=== PATIENT | male | born 1960 | race Caucasian/White ===

== ENCOUNTER 2018-09-09 19:38 | Inpatient (IN) | payer MEDICAID ==
[~2018-09-09] VITALS: Ht 180.3 cm; Wt 82.5 kg
[2018-09-09 20:13] LABS: BASOPHILS 0.5 % (0-2); HEMATOCRIT 46.6 % (42.0-54.0); HEMOGLOBIN 16.9 g/dL (13.5-17.5); IMMATURE GRANULOCYTES 0.1 % (0-5); LYMPHOCYTES 41.5 % (15-50); MCH 33.7 pg (26.0-34.0); MCHC 36.3 g/dL (31.0-37.0); MEAN PLATELET VOLUME 9.1 fL (7.4-10.4); MONOCYTES 10.9 % (2-11); PLATELET COUNT 197 10x3/uL (130-400); RBC 5.01 10x6/uL (4.20-6.10); RDW 13.5 % (11.5-14.5); WBC 8.6 10x3/uL (4.8-10.8)
[2018-09-09 20:28] LABS: ALBUMIN 3.9 g/dL (3.4-5.0); ALKALINE PHOSPHATASE 67 U/L (46-116); ALT (SGPT) 20 U/L (10-68); BILIRUBIN - TOTAL 0.39 mg/dL (0.2-1.3); CALC OSMOLALITY 270 mosm/kg (275-300); CALCIUM 8.5 mg/dL (8.5-10.1); CARBON DIOXIDE 23.1 mmol/L (21.0-32.0); CHLORIDE - SERUM 100 mmol/L (98-107); GLUCOSE 99 mg/dL (74-106); POTASSIUM - SERUM 4.1 mmol/L (3.5-5.1); PROTEIN - SERUM 7.3 g/dL (6.4-8.2); SODIUM 136 mmol/L (136-145); UREA NITROGEN 9 mg/dL (7-18); eGFR NON AFRICAN AMERICAN 82 mL/min (90-120)
--- NOTE | 2018-09-09 21:25 | NUR ---
WOUND IRRIGATED WITH 1000 ML OF NS IRRIGATION SOLUTION.
--- NOTE | 2018-09-09 21:27 | NUR ---
FINGER WAS DRESSED WITH NS SOAKED GAUZE AND WRAPPED WITH ROLL GAUZE, PT ADA WELL.
[2018-09-09 22:21] VITALS: BP 134/85; BMI 25.3
[2018-09-09] MEDS ORDERED: IBUPROFEN200 MG PO (22:37)
[2018-09-09] MEDS ORDERED: ALEVE220 MG PO (22:38)
--- NOTE | 2018-09-09 23:12 | NUR ---
PT ARRIVED VIA W/C FROM ER AT 2201 HRS. DENIED ANY DISCOMFORT. ADMISSION ASSESSMENT, HISTORY AND HOME MED LIST COMPLETED. ALERT AND ORIENTED TO PERSON, PLACE AND TIME. 4TH DIGIT OF L HAND BANDAGED ANDSTABILIZED WITH METAL IMMOBILIZER. PALPABLE PERIPHERAL PULSES. IV TO RFA WITH NS AT 125CC/HR. INFORMED NPO AFTER MIDNIGHT FOR PROBABLE OTHOPEDIC SURGERY BY DR WARD. PT STATED UNDERSTANDING. BROTHER AT BEDSIDE. SR UP X1, CALL LIGHT WITHIN REACH.
[2018-09-10] VITALS: BP 134/85
--- NOTE | 2018-09-10 00:45 | NUR ---
PT RESTING WITH EYES CLOSED. RESP EVEN AND REGULAR. SRUP X2, CALL LIGHT WITHIN REACH.
--- NOTE | 2018-09-10 02:27 | NUR ---
PT RESTING WITH EYES CLOSED. RESP EVEN AND REGULAR. SR UP X2, CALL LIGHT WITHIN REACH.
[2018-09-10 04:00] VITALS: BP 130/68
--- NOTE | 2018-09-10 04:28 | NUR ---
PT STATED HE ACCIDENTALLY HIT L HAND ON TABLE. REQUESTING PAIN MEDS. INFORMED PT NEXT PAIN MEDS AROUND 0500. PT STATED UNDERSTANDING. SR UP X1, CALL LIGHT WITHIN REACH.
--- NOTE | 2018-09-10 06:43 | NUR ---
VSS. PT STATES MORPHINE HELPED PAIN, NEEDS MET;WILL CONTINUE TO MONITOR.
--- NOTE | 2018-09-10 07:45 | NUR ---
A/A/OX4. REMAINS NPO FOR SURGERY TODAY. BANDAGE TO RIGHT HAND WITH SMALL AMT BLOOD NOTED. NO REQUESTS AT PRESENT TIME. ASSESSMENT COMPLETED AND WILL CONTINUE POC.
[2018-09-10 08:55] VITALS: BP 137/75
[2018-09-10 09:21] VITALS: Ht 180.3 cm; Wt 82.5 kg
[2018-09-10 12:36] VITALS: BP 140/56
--- NOTE | 2018-09-10 14:15 | NUR ---
I have reviewed this patient and I concur with the Shift Assessment completed by the Licensed Practical Nurse today this shift.
--- NOTE | 2018-09-10 14:23 | NUR ---
TO SURGERY VIA BED.
--- NOTE | 2018-09-10 14:33 | NUR ---
I have reviewed this patient and I concur with the Shift Assessment completed by the Licensed Practical Nurse today this shift.
--- NOTE | 2018-09-10 16:45 | NUR ---
RETUNRED TO ROOM VIA BED. A/A/OX4 AND DENIES ANY PAIN AT THIS TIME. DRESSING TO LEFT HAND C/D/I. VS STABLE.
[2018-09-10 20:00] VITALS: BP 130/72
[2018-09-11] VITALS: BP 138/76
--- NOTE | 2018-09-11 02:27 | NUR ---
I have reviewed this patient and I concur with the Shift Assessment completed by the Licensed Practical Nurse today this shift.
--- NOTE | 2018-09-11 03:26 | NUR ---
MORPHINE 4 MG GIVEN IV FOR C/O PAIN TO HAND, RATES PAIN AT AN 8 ON PAIN SCALE.
[2018-09-11 04:20] VITALS: BP 119/75
--- NOTE | 2018-09-11 07:24 | NUR ---
PT BACK TO ROOM, HOOKED HIM BACK TO IV FLUIDS AT 50CC/HR TO RIGHT FOREARM. PT A/OX4, RESP EVEN AND NONLABORED ON RA. LT HAND WITH DRESSING CDI. PT DENIES ANY PAIN AT THIS TIME. INFORMED HIM THAT HE DOES HAVE A GARAGE MECHANIC PUMP TO CONTROL HIS PAIN IF HE STARTS HURING REALLY BAD. PT STATED THAT THE PAIN MEDICATION THAT HE IS GETTING IS WORKING RIGHT NOW. PT DENIES ANY OTHER NEEDS AT THIS TIME. CALL LIGHT IN REACH, NAD NOTED, WILL CONTINUE PLAN OF CARE.
[2018-09-11] MEDS ORDERED: PERCOCET 7.5/321 TAB PO (08:08)
[2018-09-11] MEDS ORDERED: ATARAX 25 MG TA25 MG PO (08:09)
[2018-09-11] MEDS ORDERED: SULFAMETHOXAZOL1 TA3 PO (08:10)
[2018-09-11] MEDS ORDERED: COLACE100 MG PO (08:17)
--- NOTE | 2018-09-11 08:17 | NUR ---
COLACE GIVEN ORDERED, ALSO GAVE 4MG OF MORPHINE FOR PAIN LEVEL OF 5/10. PT DENIES ANY OTHER NEEDS AT THIS TIME. CALL LIGHT IN REACH, NAD NOTED, WILL CONTINUE TO MONITOR.
[2018-09-11 09:16] VITALS: BP 145/80
--- NOTE | 2018-09-11 09:55 | NUR ---
PROVIDED VERBAL AND WRITTEN DISCHARGE TEACHING TO PT, WHO VERBALIZED UNDERSTANDING REGARDING TEACHING. D/C RT FA IV WITH CATHETER TIP INTACT. PT REFUSED WHEELCHAIR, LEFT UNIT VIA AMBULATORY WITH ALL BELONGINGS, ACCOMPANIED BY FAMILY, NAD NOTED.
--- NOTE | 2018-09-11 10:02 | MORECARE ---
CASE MANAGEMENT DISCHARGE SUMMARY PATIENT: GATO LUNA UNIT: [id number] ADM DATE: 09/10/18 AGE: 57 : 62 SEX: M ROOM/BED: D.2113 AUTHOR: FELICIANO GERMAN PHYSICIAN: REFERRING PHYSICIAN: MAT WARD MD DATE OF SERVICE: 09/11/18 Discharge Plan Patient Name: GATO LUNA Facility: [facility]:[place] : 1960 Planned Disposition: Home Anticipated Discharge Date: 09/11/18 Discharge Date: Expected LOS: 1 Initial Reviewer: [email or web address] Initial Review Date: 09/11/2018 Generated: 09/11/18 11:02 am Patient Name: GATO LUNA Page [id number] at 1002 All edits/amendments must be made on the electronic document DICTATION DATE: 09/11/18 1002 LOCKER ATTENDANT: JONES 09/11/18 1002 RPT#: [id number] DC DATE: STATUS: ADM IN [facility] [address] [place] [address] END OF REPORT
--- NOTE | 2018-09-11 10:09 | MORECARE ---
CASE MANAGEMENT DISCHARGE SUMMARY PATIENT: GATO LUNA UNIT: [id number] ADM DATE: 09/10/18 AGE: 57 : 62 SEX: M ROOM/BED: D.2113 AUTHOR: MAXI,DOC PHYSICIAN: REFERRING PHYSICIAN: MAT WARD MD DATE OF SERVICE: 09/11/18 Discharge Plan Patient Name: GATO LUNA Facility: [facility]:[place] : 1960 Planned Disposition: Home Anticipated Discharge Date: 09/11/18 Discharge Date: Expected LOS: 1 Initial Reviewer: [email or web address] Initial Review Date: 09/11/2018 Generated: 09/11/18 11:09 am Comments DCP- Discharge Planning Updated by [email or web address]: Selwyn Herrera on 09/11/18 9:[address] Patient Name: GATO LUNA Admission Status: ER Accout number: [id number] Admission Date: 09-10-2018 : 1960 Admission Diagnosis: Attending: MAT WARD Current LOS: 1 Anticipated DC Date: 09-11-2018 Planned Disposition: Home Primary Insurance: MEDICAID [place] PENDING Discharge Planning Comments: CM MET WITH PT AND BROTHER IN ROOM TO DISCUSS DISCHARGE PLANNING AND NEEDS. GATO LUNA provided verbal consent to discuss current and ongoing needs with/in the presence of: BROTHER TERESITA. PT REPORTS LIVING AT HOME INDEPENDENTLY AND ALONE [facility] PT HAS CANES THAT HE USES ON [employer] WITH NO MEDICAL EQUIPMENT PROVIDER PREFERENCE. PT HAS NO OUTSIDE SERVICES ASSISTING IN THE HOME. CM DISCUSSED AVAILABILITY OF HOME HEALTH, REHAB SERVICES AND MEDICAL EQUIPMENT. PT DENIES DISCHARGE NEEDS, REPORTS HIS BROTHER IS HERE TO PICK HIM UP FOR DISCHARGE HOME. CM PROVIDED [facility] INFORMATION FOR POSSIBLE PRIMARY CARE ARRANGEMENT BY PATIENT AND [employer] DISCOUNT CARD TO POSSIBLY ASSIST WITH PRESCRIPTION PURCHASE JEONG. Tape Maker: Selwyn Herrera DCPIA - Discharge Planning Initial Assessment Updated by [email or web address]: Selwyn Herrera on 09/11/18 10:02 am * Is the patient Alert and Oriented? Yes * How many steps to enter\exit or inside your home? * PCP NONE - REFERRED TO [facility] * Pharmacy [facility] [address] * Preadmission Environment Home Alone * ADLs Independent * Equipment Cane * Other Equipment NO MEDICAL EQUIPMENT PROVIDER PREFERENCE * List name and contact numbers for known caregivers / representatives who currently or will assist patient after discharge: TERESITA LUNA, BROTHER, * Verbal permission to speak to the caregivers and representatives has been obtained from the patient. Yes * Community resources currently utilized None * Please name any agencies selected above. NONE * Additional services required to return to the preadmission environment? No * Can the patient safely return to the preadmission environment? Yes * Has this patient been hospitalized within the prior 30 days at any hospital? No Last DP export: 09/11/18 9:02 am Patient Name: GATO LUNA Page [id number] at 1009 All edits/amendments must be made on the electronic document DICTATION DATE: 09/11/18 100 WORKERS COMPENSATION COORDINATOR: JONES 09/11/18 100 RPT#: [id number] DC DATE: STATUS: ADM IN [facility] [address] [place] [address] END OF REPORT
--- NOTE | 2018-09-13 12:42 | OP ---
PATIENT NAME: GATO LUNA MEDICAL RECORD: [id number] :62 LOCATION:D.M2 D.2113 ADMISSION DATE:09/10/18 SURGEON: MAT WARD MD DATE OF OPERATION: 09/10/2018 PREOPERATIVE DIAGNOSIS: Open fracture of the left middle phalanx ring finger. POSTOPERATIVE DIAGNOSES: Open fracture of the left middle phalanx ring finger. PROCEDURES: 1. Excisional debridement of open fracture to include skin, subcutaneous tissue, portions of fat, fascia, muscle, and bone. 2. Closure of wound #3 and application Avni mini ex-fix of the left index finger. 3. Percutaneous pinning of fracture. SURGEON: Mat Ward MD ANESTHESIA: General. INTRAOPERATIVE COMPLICATIONS: None. SUMMARY OF PATHOLOGIC FINDINGS: The patient has substantial amount of bone loss. However, the radial cortical side seemed to be intact. There was an intraarticular split of the distal aspect of the middle phalanx. This was fixed with a K-wire. 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 His alcohol level was somewhat high when he came in, his surgery was then delayed while this was allowed to come down; however, he was debrided and given antibiotics along with tetanus in the Emergency Department. OPERATIVE SUMMARY IN DETAIL: After obtaining the appropriate preoperative orthopedic surgery consent as well as anesthetic consultation, evaluation and clearance, the patient was brought to the operating room and placed on the operating table in supine position. After general laryngeal mask airway was administered, the patient was placed in the proximal aspect of the left upper extremity. Left upper extremity was then prepped and draped in routine sterile fashion without using the tourniquet, irrigation followed by primary closure of the somewhat jagged but closeable wound on both the dorsal and volar aspect. It is of note that the tendons were intact entirely. The patient's ulnar digital nerve was obviously lacerated and was not reapproximatable because of the nature of the skill saw injury. Having completed the closure of the wound, the finger was held in a reduced position while apex pins were placed in the proximal aspect of the DIP joint as well as the proximal aspect of the middle phalanx as well as the distal aspect of the metacarpal. Avni mini ex-fix was then assembled and after the appropriate adjustments were made, it was tightened. The finger was in excellent overall alignment on both AP and lateral planes; however, bicondylar split remained. A small reduction forceps was utilized to hold the condyle in an anatomically reduced position while an 0.045 K-wire was driven across this to help maintain reduction of the intraarticular split. Final radiographs were taken and submitted for radiologist review. Sterile dressings were applied. Tourniquet was deflated. Sterile dressing was applied. OPERATIVE REPORT [id number] GATO LUNA The patient was awakened and taken to the recovery room in stable condition. All final needle and sponge counts were correct. TRANSINT:[id number] Voice Confirmation ID: [id number] DOCUMENT ID: [id number] MAT WARD MD at 1242 CC: [id number] DICTATION DATE: 09/12/18 0816 KAIAWHINA KURA KAUPAPA MAORI: 09/12/18 0937 [facility] IN 09/11/18 [id number] [place] [address]
== END 2018-09-11 10:13 | disposition home or self-care (01) | DRG 517 ==
LOC: D.ER 19:38 → D.EDHOLD 21:17 → OBSVTIME 21:17 → D.M2 21:17
PROVIDERS: Family Medicine; ADMIT Orthopaedic Surgery; ATTEND Orthopaedic Surgery
PROC: 3E0T3BZ Introduction of Anesthetic Agent into Peripheral Nerves and Plexi, Percutaneous Approach (ICD-10-PCS; 2018-09-09)
PROC: 2W3KX1Z Immobilization of Left Finger using Splint (ICD-10-PCS; 2018-09-09)
PROC: 0PSV35Z Reposition Left Finger Phalanx with External Fixation Device, Percutaneous Approach (ICD-10-PCS; 2018-09-10)
PROC: 0HQGXZZ Repair Left Hand Skin, External Approach (ICD-10-PCS; 2018-09-10)
PROC: 0PBV0ZZ Excision of Left Finger Phalanx, Open Approach (ICD-10-PCS; principal; 2018-09-10 16:15)
DX: S62.625B Displaced fracture of middle phalanx of left ring finger, initial encounter for open fracture (principal); W29.8XXA Contact with other powered hand tools and household machinery, initial encounter; F17.210 Nicotine dependence, cigarettes, uncomplicated; F10.129 Alcohol abuse with intoxication, unspecified; Y90.2 Blood alcohol level of 40-59 mg/100 ml; S64.495A Injury of digital nerve of left ring finger, initial encounter

== ENCOUNTER 2018-10-11 09:38 | Day surgery (SDC) | payer MEDICAID ==
[~2018-10-11] VITALS: Ht 180.3 cm; Wt 81.6 kg
[~2018-10-11 09:38] MED LIST: ALEVE220 MG PO; ATARAX 25 MG TA25 MG PO; COLACE100 MG PO; IBUPROFEN200 MG PO; PERCOCET 7.5/321 TAB PO; SULFAMETHOXAZOL1 TA3 PO
[2018-10-11 11:11] VITALS: BP 141/79; Ht 180.3 cm; Wt 81.6 kg
--- NOTE | 2018-10-11 13:21 | NUR ---
1315-RECD FROM SURGERY. ALERT. IV PATEMT. RESP WITH EASE. 1320-FULL LIQUIDS SERVED. DENIES PAIN/NAUSEA.
--- NOTE | 2018-10-11 14:00 | NUR ---
1400-D/C HOME VIA WHEELCHAIR WITH FAMILY MEMBER
--- NOTE | 2018-10-18 11:34 | OP ---
PATIENT NAME: GATO LUNA MEDICAL RECORD: [id number] :62 LOCATION:[facility] ADMISSION DATE: SURGEON: MAT WARD MD DATE OF OPERATION: 10/11/2018 PREOPERATIVE DIAGNOSIS: Previously placed external fixator for open radial saw fracture of the left fourth index finger. POSTOPERATIVE DIAGNOSIS: Previously placed external fixator for open radial saw fracture of the left fourth index finger. PROCEDURE: Removal of external fixator. SURGEON: Mat Ward MD ANESTHESIA: TIVA. INTRAOPERATIVE COMPLICATIONS: None. SUMMARY OF PATHOLOGIC FINDINGS: Upon removal of the external fixator, the finger did hold good alignment. It is somewhat tenuous still at this point. INDICATIONS: A 58-year-old male had almost a near amputation. 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 After awl was removed, the finger did hold its appropriate position and bandages were applied. OPERATIVE SUMMARY IN DETAIL: After obtaining the appropriate preoperative orthopedic surgery consent as well as anesthetic consultation, evaluation, and clearance; and doing the appropriate time-out and agreement with all, the patient was given TIVA anesthesia and then serial and sequential removal of the Monorail ex-fix was done with removal of the carbon fiber bar followed by removal of the apex pins. At this point, the pin sites were cleansed thoroughly and covered with Xeroform and bandage was applied. The patient was taken back to outpatient in stable condition. TRANSINT:[id number] Voice Confirmation ID: [id number] DOCUMENT ID: [id number] MAT WARD MD at 1134 CC: [id number] DICTATION DATE: 10/17/18 1027 RETAIL AIDE: 10/17/18 1238 [facility] 10/11/18 [place] [id number]
== END 2018-10-11 14:00 | disposition home or self-care (01) ==
LOC: D.OPS 09:38 → D.PAN 10-18 12:15
PROVIDERS: ATTEND Orthopaedic Surgery
DX: S62.605D Fracture of unspecified phalanx of left ring finger, subsequent encounter for fracture with routine healing (principal); X58.XXXD Exposure to other specified factors, subsequent encounter; Z01.812 Encounter for preprocedural laboratory examination

== ENCOUNTER 2018-11-12 08:21 | Day surgery (SDC) | payer MEDICAID ==
[~2018-11-12] VITALS: Ht 180.3 cm; Wt 81.6 kg
[~2018-11-12 08:21] MED LIST changes: +IBUPROFEN600 MG PO
[2018-11-12] MEDS ORDERED: ALEVE220 MG PO (10:36)
[2018-11-12 10:38] VITALS: BP 125/82; Ht 180.3 cm; Wt 81.6 kg
[2018-11-12] MEDS ORDERED: DILAUDID2 MG PO (14:03)
--- NOTE | 2018-11-12 18:16 | NUR ---
1515 MED PAIN. 1545 IV REMOVED AND INSTRUCTIONS GIVEN TO FAMILY AND PT 1600 PT VOIDED AND D/C HOME
--- NOTE | 2018-11-14 15:43 | OP ---
PATIENT NAME: GATO LUNA MEDICAL RECORD: [id number] :62 LOCATION:[facility] ADMISSION DATE: SURGEON: MAT WARD MD DATE OF OPERATION: 11/12/2018 PREOPERATIVE DIAGNOSIS: Painful left ring finger status post near amputation. POSTOPERATIVE DIAGNOSIS: Painful left ring finger status post near amputation. PROCEDURE: Left ring finger amputation of mid phalangeal joint. SURGEON: Mat Ward MD ANESTHESIA: General. INTRAOPERATIVE COMPLICATIONS: None. 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 Therefore, at his request, the surgery above was scheduled. OPERATIVE SUMMARY IN DETAIL: After obtaining the appropriate preoperative orthopedic surgery consent as well as anesthetic consultation, evaluation, and clearance, the patient was brought to the operating room and placed on the operating table in the supine position. After general laryngeal mask was administered, a tourniquet was placed about the proximal aspect of the left upper extremity. The left upper extremity was prepped and draped in routine sterile fashion. At this point, the appropriate time-out was taken. Appropriate indicated and identifying markers and numbers were noted as well as current medications. All were in agreement. The arm was elevated and exsanguinated. Tourniquet was inflated to 250 mmHg. A fishmouth incision was made in the mid aspect of the phalanx. The volar aspect was used as the longer flap. Bone was then cut using a simple bone cutting pliers and cleaned up nicely. Wound was then irrigated and closed with 3-0 Prolene. Prior to sterile dressing application, finger block was performed. Sterile dressing was then applied. Tourniquet was deflated. The patient was awakened and taken to the recovery room in stable condition. All final needle and sponge counts were correct. TRANSINT:[id number] Voice Confirmation ID: [id number] DOCUMENT ID: [id number] MAT WARD MD at 1543 CC: [id number] DICTATION DATE: 11/12/18 1406 APPIAN DEVELOPER: 11/12/18 1526 [facility] 11/12/18 [id number] [place] [address]
== END 2018-11-12 16:00 | disposition home or self-care (01) ==
LOC: D.OPS 08:21 → D.PAN 15:45 → D.OPS 16:00 → D.PAN 17:15
PROVIDERS: ATTEND Orthopaedic Surgery
DX: M79.645 Pain in left finger(s) (principal); X58.XXXA Exposure to other specified factors, initial encounter; Z01.812 Encounter for preprocedural laboratory examination